=== PATIENT | male | born 1985 | race Caucasian/White ===

== ENCOUNTER 2023-11-20 17:52 | Observation (INO) | payer OTHER, SELFPAY ==
[2023-11-20 13:12] VITALS: BP 130/90
--- NOTE | 2023-11-20 14:26 | ED.GENMED ---
History of Present Illness
<Swetha Machado PA-C - Last Filed: 11/20/23 17:53>
General
Chief Complaint: Skin Problem
Source: patient
Exam Limitations: none
Time Seen by Provider: 11/20/23 14:25
Nursing documentation reviewed up to this point in time: agreed with
Travel History
Have you had any contact with someone who has COVID-19?: No
Do you have any symptoms of coronavirus? Fever > 100 degrees, chills, cough, shortness of breath, sore throat, loss of taste or smell, muscle aches, or headache?: No
History of Present Illness
History of Present Illness:
38 y/o male with a hx of substance use disorder, right ankle fracture presenting to emergency department today with acute on chronic right ankle pain. Patient states that in March, he had fallen off a roof and fractured his ankle and calcaneus,
had had surgery at [facility]. Patient states that since then, he has had persistent pain. Patient states that he has not had follow-up with his surgeon since then. His patient states that he had the stitches removed in the back of
his foot, and at that site, there has been a wound there that has been progressively been getting larger and becoming more painful. Patient states that he has had no drainage from the wound, no fevers or chills. Patient states that he cannot walk
without significant pain. Patient denies abdominal pain, nausea, vomiting.
Review of Systems
<Swetha Machado PA-C - Last Filed: 11/20/23 17:53>
Review of Systems
All Other Systems: ROS reviewed and negative except as documented in HPI and ROS
Phy Exam
<Swetha Machado PA-C - Last Filed: 11/20/23 17:53>
Physical Exam
Physical Exam:
Vitals: Patient's vital signs are stable
General: Patient stuporous. No acute distress
Skin: There is a 3 cm open chronically ulcerated wound with necrosis on posterior calcaneal surface of the right foot. There is also a small shallow red ulcer on the distal right leg. No active drainage, no bleeding
Head: Normocephalic, atraumatic
Cardiac: Regular rate and rhythm, no murmur
Peripheral vascular: 2+ dorsalis pedis pulses bilaterally, no lower extremity edema
Pulm: Normal respiratory effort
Musculoskeletal: Patient is full range of motion bilateral lower extremities. Patient is significant bony tenderness palpation of the right foot, right ankle, right calcaneus.
Neuro: CN II-XII intact. No focal neurologic deficits. Alert and oriented.
Course
<Swetha Machado PA-C - Last Filed: 11/20/23 17:53>
Orders/Labs/Results
Orders:
Orders
11/20/23 13:26
Ankle, Right 3 view CR [CR Ankle - Right Min 3 Views *] Urgent
Comment:
Reason For Exam: pain
11/20/23 15:25
CRP [C-Reactive Protein] Urgent
Complete Blood Count/With Diff Urgent
Comprehensive Metabolic Panel Urgent
Sed Rate [Erythrocyte Sed Rate] Urgent
Blood Culture Q30M
MORENA Source: Blood/Venous
Specimen Description:
11/20/23 15:43
Ibuprofen [Motrin] 600 mg PO NOW STA
11/20/23 16:17
Ibuprofen [Motrin] 400 mg .ROUTE .STK-MED ONE
11/20/23 16:57
Fentanyl, Urine Urgent
Urine Drug Abuse Screen Urgent
Date Specimen was Collected: 11/20/23
Time Specimen was Collected: 16:54
11/20/23 17:04
Admit/Transfer Patient As Directed
Co-Sign Provider:
Level of Care: Observation services
Assign to:: Telemetry
Physician / Group: Sheu
Diagnosis: Right Heel Wound; Osteomyelitis
Reason for Telemetry: Arrhythmia
Date to Stop Telemetry: 11/23/23
Time to Stop Telemetry: 11:00
Reason for Hospitalization: ID and Podiatry Consult; LE MRI
11/20/23 17:09
Code Status As Directed
Resuscitation Status: Full Code
11/20/23 17:23
Electrocardiogram (*1) Urgent
Reason for Study: QTc Monitoring
Comment: if not already done in ED
11/20/23 17:34
Add On- LAB Urgent
Comments:: urine in lab
Tests Added?: urine fentanyl
11/20/23 17:45
Blood Culture Q30M
MORENA Source: Blood/Venous
Specimen Description:
11/23/23 11:00
DC Protocol for Telemetry ONCE
Abnormal Lab Results
11/20/23 11/20/23
15:25 16:57
MPV 10.8 H fL
(7.4-10.4)
Lymphocytes % 18.7 L %
(20.5-51.1)
ESR 29 H mm/hour
(0-20)
Glucose 101 H mg/dl
(70-99)
C-Reactive Protein 47.90 H mg/L
(0.0-10.00)
Urine Fentanyl Screen Positive H
(Negative)
Urine Cocaine Screen Positive H
(Negative)
11/20/23 15:25
11/20/23 15:25
Vital Signs
Initial and Last Documented VS:
Initial Vital Signs
Temp Pulse Resp BP Pulse Ox
98.6 F 86 18 130/90 98
11/20/23 13:12 11/20/23 13:12 11/20/23 13:12 11/20/23 13:12 11/20/23 13:12
Last Documented Vital Signs
Temp Pulse Resp BP Pulse Ox
98.6 F 86 18 130/90 98
11/20/23 13:12 11/20/23 13:12 11/20/23 13:12 11/20/23 13:12 11/20/23 13:12
<Renato Claudio, DO - Last Filed: 11/20/23 15:04>
Orders/Labs/Results
Orders:
Orders
11/20/23 13:26
Ankle, Right 3 view CR [CR Ankle - Right Min 3 Views *] Urgent
Comment:
Reason For Exam: pain
11/20/23 15:25
CRP [C-Reactive Protein] Urgent
Complete Blood Count/With Diff Urgent
Comprehensive Metabolic Panel Urgent
Sed Rate [Erythrocyte Sed Rate] Urgent
Blood Culture Q30M
MORENA Source: Blood/Venous
Specimen Description:
11/20/23 15:43
Ibuprofen [Motrin] 600 mg PO NOW STA
11/20/23 16:17
Ibuprofen [Motrin] 400 mg .ROUTE .STK-MED ONE
11/20/23 16:57
Fentanyl, Urine Urgent
Urine Drug Abuse Screen Urgent
Date Specimen was Collected: 11/20/23
Time Specimen was Collected: 16:54
11/20/23 17:04
Admit/Transfer Patient As Directed
Co-Sign Provider:
Level of Care: Observation services
Assign to:: Telemetry
Physician / Group: Sheu
Diagnosis: Right Heel Wound; Osteomyelitis
Reason for Telemetry: Arrhythmia
Date to Stop Telemetry: 11/23/23
Time to Stop Telemetry: 11:00
Reason for Hospitalization: ID and Podiatry Consult; LE MRI
11/20/23 17:09
Code Status As Directed
Resuscitation Status: Full Code
11/20/23 17:23
Electrocardiogram (*1) Urgent
Reason for Study: QTc Monitoring
Comment: if not already done in ED
11/20/23 17:34
Add On- LAB Urgent
Comments:: urine in lab
Tests Added?: urine fentanyl
11/20/23 17:45
Blood Culture Q30M
MORENA Source: Blood/Venous
Specimen Description:
11/23/23 11:00
DC Protocol for Telemetry ONCE
Abnormal Lab Results
11/20/23 11/20/23
15:25 16:57
MPV 10.8 H fL
(7.4-10.4)
Lymphocytes % 18.7 L %
(20.5-51.1)
ESR 29 H mm/hour
(0-20)
Glucose 101 H mg/dl
(70-99)
C-Reactive Protein 47.90 H mg/L
(0.0-10.00)
Urine Fentanyl Screen Positive H
(Negative)
Urine Cocaine Screen Positive H
(Negative)
11/20/23 15:25
11/20/23 15:25
Vital Signs
Initial and Last Documented VS:
Initial Vital Signs
Temp Pulse Resp BP Pulse Ox
98.6 F 86 18 130/90 98
11/20/23 13:12 11/20/23 13:12 11/20/23 13:12 11/20/23 13:12 11/20/23 13:12
Last Documented Vital Signs
Temp Pulse Resp BP Pulse Ox
98.6 F 86 18 130/90 98
11/20/23 13:12 11/20/23 13:12 11/20/23 13:12 11/20/23 13:12 11/20/23 13:12
Audralt;Swetha Machado PA-C - Last Filed: 11/20/23 17:53>
MDM/Problems Addressed
Differential Diagnosis Includes:
ddx include chronic pressure ulcer, osteomyelitis, cellulitis, folliculitis
MDM/Problems Addressed:
foot pain
Chronic conditions affecting care: Other (substance use disorder)
Acute Exacerbation and/or Progression of Chronic Illness: Other (substance use disorder)
<Swetha Machado PA-C - Last Filed: 11/20/23 17:53>
*Radiology
Radiology exam reviewed: preliminary read by ED provider (no acute fracture or dislocation )
*Pulse Oximetry
Patient hypoxic: no
*Critical Care Note
Total Time (30-74mins, 75-104mins- exclusive of procedures): Not Applicable
Data Reviewed
Review of Other/Old Records Reveals: Records (no previous records in [facility] to review ) and Discharge Summary (no previous records in [facility] to review )
Source: patient and records
<Swetha Machado PA-C - Last Filed: 11/20/23 17:53>
Patient Management
Escalation/DeEscalation of care consider admission/obs:
38 y/o male with a hx of substance use disorder, right ankle fracture presenting to emergency department today with acute on chronic right ankle pain. Patient states that in March, he had fallen off a roof and fractured his ankle and calcaneus,
had had surgery at [facility]. Physical exam, patient has a ulcerated necrotic wound on his right calcaneus and significant bony tenderness to palpation. His x-ray reveals severe flattening of the posterior calcaneal cortex of the
right foot with severe subcortical sclerosis suspicious for chronic osteomyelitis. Considering this finding along with elevated ESR and CRP, we will admit patient for workup of osteomyelitis. Patient aware and in agreement with plan. Patient
accepted by hospitalist.
ED Attending Note
<Swetha Machado PA-C - Last Filed: 11/20/23 17:53>
-
Portions of this chart may have been created with voice recognition software.� Occasional wrong word or��sound alike� substitutions may have occurred due to the inherent limitations of voice recognition software.
<Renato Claudio DO - Last Filed: 11/20/23 15:04>
ED Attending Note
Patient seen and examined by attending physician: Yes
I performed the substantive portion of visit, reviewed & personally made and approve the management plan that is documented in note by myself or MEI.: Yes
ED Attending Note:
Seen with PA examined independently 38-year-old male status post fall with a calcaneal fracture treated at [facility] sutures removed he is has now subacute to chronic pain with a black eschar at the surgical site, no drainage, no appreciable
tenderness, patient appears nontoxic, x-ray noted we will await formal report
Update x-ray report noted will check CBC ESR other blood work
Discharge Plan
Departure
Patient Disposition: Admit
Date of Disposition: 11/20/23
Time of Disposition: 16:32
Presentation/result/management discussed w/ accepting MD/DO: Hospitalist
Patient with high blood pressure during this ER visit?: Yes
Condition: Fair
Discharge Problem:
Acute pain of right foot, Osteomyelitis
Prescriptions:
No Action
buprenorphine-naloxone 8-2 mg film
1 film sublingual BID
Patient Comments:
11/20/2023: last filled 10/18/23, 10 film for 5 days from [facility]
Referrals:
UNKNOWN - PT DOES,NOT KNOW [Family Provider] -
Interventions
Interventions:
*Risk Screen - Suicide Last Done: 11/20/23 13:12
*General Assessment Last Done: 11/20/23 13:12
*Neglect/Abuse Screening Last Done: 11/20/23 13:12
*ED COVID-19 Vaccine History Last Done: 11/20/23 13:12
ED-Skin Assessment Last Done: 11/20/23 15:35
Discharge Date and Time
Print Language: ESTONIAN
[2023-11-20 15:33] LABS: % Basophils 0.5 % (0-2); % Eosinophils 4.2 % (0-6); % Immature Granulocytes 0.3 % (0-0.5); % Lymphocytes 18.7 % (20.5-51.1); % Monocytes 6.6 % (1.7-9.3); % Neutrophils 69.7 % (42.2-75.2); Absolute Eosinophils 0.3 10^3/uL (0-0.7); Absolute Lymphocytes 1.2 10^3/uL (1.2-3.4); Absolute Monocytes 0.4 10^3/uL (0.1-0.6); Absolute Neutrophils 4.5 10^3/uL (1.4-6.5); Hematocrit 43.2 % (39.0-52.0); Hemoglobin 14.7 g/dL (13.0-18.0); Mean Corpuscular Hgb 27.6 pg (27.0-31.0); Mean Corpuscular Volume 81.2 fL (80.0-94.0); Mean Platelet Volume 10.8 fL (7.4-10.4); Nucleated Red Blood Cells % 0 % (-); Platelet Count 209 10^3/uL (130-400); Red Blood Cell Count 5.32 10^6/uL (4.70-6.10); Red Cell Dist. Width 13.3 % (11.5-14.5); White Blood Cell Count 6.5 10^3/uL (4.8-10.8)
[2023-11-20 15:47] LABS: ALT (SGPT) 17 U/L (0-50); AST (SGOT) 20 U/L (17-59); Albumin 4.3 g/dl (3.5-5.0); Alkaline Phosphatase 81 U/L (38-126); Blood Urea Nitrogen 10 mg/dl (9-20); Calcium 9.5 mg/dl (8.4-10.2); Carbon Dioxide 27 mmol/L (22-30); Chloride 106 mmol/L (98-107); Glucose 101 mg/dl (70-99); Potassium 4.4 mmol/L (3.5-5.1); Sodium 139 mmol/L (135-145); Total Bilirubin 0.6 mg/dl (0.2-1.3); Total Protein 7.4 g/dl (6.3-8.2); eGFR > 60.00
[2023-11-20 15:48] LABS: Erythrocyte Sed Rate 29 mm/hour (0-20)
[2023-11-20] MEDS: MOTRIN 600 MG PO (16:37)
--- NOTE | 2023-11-20 17:26 | HPS.HSE ---
Addendum entered and electronically signed by Mitra Hyman MD 11/20/23 18:25:
I saw and examined the patient.
The ROAD BUILDER or PA's note was reviewed and I agree with the note.
Comment:
38M hx Cocaine Abuse Right Calcaneal fracture wound infection poor historian (story noted to change between interviewers). Patient consistently reports last surgical intervention Mar 2024 [facility], original injury incurred following fall in
2022, p/w acute on chronic right heel pain. VSS afebrile. Labs relatively unremarkable no Leukocytosis mild elevation CRP ESR. UDS positive for Fentanyl and Cocaine. Patient endorses daily smoking and cocaine use via nasal airway but denies other
illicit drug use. XR of foot concerning for possible osteomyelitis wound infection.
Physical Exam
General: No pallor, cyanosis, or jaundice.
HEENT: Throat clear. Pinpoint pupils, injected conjunctiva b/l Normocephalic atraumatic
NECK: Supple. No JVD Carotid Bruits
RESPIRATORY: Lungs clear to auscultation. No crackles wheezes stridor
CVS: S1, S2 normal. RRR. No murmur, rub or gallop.
ABDOMEN: Soft, non-tender. No distension. BS+/normal.
EXTREMITIES: No peripheral cyanosis or edema. Right foot wound heel tenderness granulation tissue present
ELECTRONIC GAMING DEVICE SUPERVISOR: Lethargic but arousable oriented x3
#Right Foot Wnd heel Osteomyelitis
Wound Care
Podiatry Infectious disease Eval
MRI
blood cultures
monitor off abx for now, empiric abx if patient develops fever significant signs systemic infection
pain control Tylenol Ibuprofen
gi ppx protonix
Original Note:
Family Physician
-
Family Physician: NOT KNOW UNKNOWN - PT DOES
Chief Complaint
-
Right heel wound
History of Present Illness
Patient is a 38 y/o male with a PMH of substance abuse who presents with c/o a necrotic wound on his right heel. He states that he jumped off a 3-story building in January 2023 and broke his back, pelvis, and both ankles. He had 2 surgeries for his
right calcaneal fracture in the past year but was unable to receive hardware to fix the fracture due to preexisting infection. His second surgery in March included drain placement. He received all care from [facility] and his last appointment
was several months ago. He states that the wound has been necrotic for months. Denies fever, sweats or chills. Patient is a poor historian, frequently changing responses to questions.
Medical History
Past Medical History
Past Medical History: Reports Other
Additional Past Medical History:
Substance Use Disorder
Past Surgical History: Reports Other
Additional Past Surgical History:
Right heel surgery
Social History
Tobacco: Smoker (1.5 ppd)
Alcohol: None
Drug: Cocaine (Previous)
Living: With Family (Cousin)
Family History
Family History: Not pertinent
Allergies / Home Medications
Allergies reflects when Allergies were last updated in [facility].
Home Medications with original date entered in [facility]
Allergy/Medication List:
Allergies
Allergy/AdvReac Type Severity Reaction Status Date / Time
Penicillins Allergy Unknown Verified 11/20/23 13:13
Home Medications
buprenorphine 8 mg-naloxone 2 mg sublingual film 1 film sublingual BID 11/20/23 -Last Filled in early October 2023
Review of Systems
-
A 12 point ROS was completed and negative except as noted: Yes
Constitutional: Denies Fever or Chills
Respiratory: Denies Cough or Trouble Breathing
Cardiac: Denies Chest Pain or Palpitations
Physical Exam
Vital Signs
Vital Signs
Temp Pulse Resp BP Pulse Ox
98.6 F 86 18 130/90 98
11/20/23 13:12 11/20/23 13:12 11/20/23 13:12 11/20/23 13:12 11/20/23 13:12
Physical Exam
General: Comfortable and Conversant
HEENT: NormoCephalic, Atraumatic and Other (Sclera injected )
Respiratory: Clear and Non Labored Respirations
Cardiac: S1/S2 and Regular Rhythm
GI: Soft and Non Tender
Rectal: Deferred by Provider
Musculoskeletal: No Clubbing, No Cyanosis and No Edema
Skin: Warm, Dry and Other (Right Wound appears dark brown without significant purulent drainage)
Neuro: Awake, Alert, Oriented and Nonfocal/grossly intact
Psych: Calm
Laboratory Results
-
11/20/23 15:25
11/20/23 15:25
Laboratory Results
Total Bilirubin 0.6 mg/dl (0.2-1.3) 11/20/23 15:25
AST 20 U/L (17-59) 11/20/23 15:25
ALT 17 U/L (0-50) 11/20/23 15:25
Alkaline Phosphatase 81 U/L (38-126) 11/20/23 15:25
Data Reviewed
-
Diagnostic Radiology: Report Reviewed by me
Lab Data: Labs Reviewed by me
Impression/Plan
-
Right Heel Wound
-X-Ray raises concern for underlying osteomyelitis
-Consult Podiatry and Infectious Disease
-Hold on antibiotics given lack of systemic symptoms
-Check MRI
Substance Use Disorder
-Patient admits to prior cocaine use
-Per PDMP he previously was filling buprenorphine
-Check urine drug screen
-Start Opioid Withdrawal Protocol
Tobacco Use Disorder
-Encourage smoking cessation
-Reviewed with patient importance of smoking cessation to aide in wound healing
DVT proph: Lovenox
Code Status: Full Code
[2023-11-20 17:27] LABS: Amphetamines Negative (Negative); Barbiturates Negative (Negative); Benzodiazepines Negative (Negative); Buprenorphine Negative (Negative); Cocaine Positive (Negative)
[2023-11-20 17:28] LABS: Marijuana Negative (Negative); Methadone Negative (Negative); Methamphetamines Negative (Negative); Opiates Negative (Negative); Phencyclidine Negative (Negative); Tricyclic Antidepressants Negative (Negative)
[2023-11-20 17:43] LABS: Fentanyl, Urine Positive (Negative)
[2023-11-20 18:11] VITALS: BP 137/88
--- NOTE | 2023-11-20 18:14 | W.PN.UPDATE ---
Update Note
Progress Note Update
billing purposes
--- NOTE | 2023-11-20 18:45 | PTCARENOTE ---
/- Patient transferred and oriented to Unit without issue. Patient is AAOX3, calm, flushed with mild chills observed, but HR=85; Sinus Rhythm on Telemetry #25; Skin CDI except R-heal wound. Wound is CDI with fresh dressing. Not undressing it
at this time. Bed Alarm intact. Patient requests meal but denies any pain or other needs at this time.
[2023-11-20 18:50] VITALS: BP 139/78; BMI 31.2
[2023-11-20 23:17] VITALS: BP 119/81
[2023-11-21 03:41] VITALS: BP 136/84
[2023-11-21 06:49] LABS: Hematocrit 44.5 % (39.0-52.0); Mean Corp Hgb Conc. 33.7 g/dL (33.0-37.0); Mean Corpuscular Hgb 27.2 pg (27.0-31.0); Mean Corpuscular Volume 80.6 fL (80.0-94.0); Mean Platelet Volume 10.5 fL (7.4-10.4); Platelet Count 210 10^3/uL (130-400); Red Blood Cell Count 5.52 10^6/uL (4.70-6.10); Red Cell Dist. Width 13.4 % (11.5-14.5); White Blood Cell Count 7.2 10^3/uL (4.8-10.8)
[2023-11-21 07:00] VITALS: BP 150/95
[2023-11-21 07:11] LABS: ALT (SGPT) 15 U/L (0-50); AST (SGOT) 16 U/L (17-59); Albumin 4.1 g/dl (3.5-5.0); Alkaline Phosphatase 79 U/L (38-126); Blood Urea Nitrogen 11 mg/dl (9-20); Calcium 9.8 mg/dl (8.4-10.2); Carbon Dioxide 28 mmol/L (22-30); Chloride 106 mmol/L (98-107); Direct Bilirubin 0.4 mg/dl (0.0-0.4); Estimated Creatinine Clearance > 125 ml/min; Glucose 95 mg/dl (70-99); Potassium 4.3 mmol/L (3.5-5.1); Sodium 142 mmol/L (135-145); Total Bilirubin 0.9 mg/dl (0.2-1.3); Total Protein 7.2 g/dl (6.3-8.2); eGFR > 60.00
[2023-11-21] MEDS: PROTONIX 40 MG PO (07:11)
[2023-11-21] MEDS: TORADOL 15 MG IV (07:12)
--- NOTE | 2023-11-21 08:23 | CON.MD ---
Consultation - Medical
-
Podiatry consulted for right heel wound/history of osteomyelitis
Mr. Ya is 38M who presented to the ED for increasing redness to the right heel. He relates a history of a right Calcaneal fracture that occurred summer after falling from a height and fracturing back, pelvis, heel and ankles. At the
time he was treated at [facility]. At the time he was scheduled for ORIF of the heel, but infection was found at the time so hardware was never placed. He states that he returned to the OR for washout/drain and he was subsequently
treated with 6 weeks of IV antibiotics. VSS afebrile. Labs relatively unremarkable no Leukocytosis mild elevation CRP ESR. UDS positive for Fentanyl and Cocaine. Patient endorses daily smoking and cocaine use via nasal airway but denies other
illicit drug use. XR of foot concerning for possible osteomyelitis wound infection. Denies pain currently.
Past Medical History
Past Medical History: Reports Other
Additional Past Medical History:
Substance Use Disorder
Past Surgical History: Reports Other
Additional Past Surgical History:
Right heel surgery
Social History
Tobacco: Smoker (1.5 ppd)
Alcohol: None
Drug: Cocaine (Previous)
Living: With Family (Cousin)
Family History
Family History: Not pertinent
Physical Exam
Right heel with a deformed calcaneal bone, prominent bone superiorly and flat depressed bone directly posterior, there is hard yellow brown hyperkeratosis present. No erythema, no active drainage. No areas of probing and no bone exposed. On the
anterior ankle is an unrelated superficial fibrogranular wound that he states it from scratching. serous drainage only, no erythema.
Allergy
Penicillin
Home Medications
buprenorphine 8 mg-naloxone 2 mg sublingual film 1 film sublingual BID 11/20/23 -Last Filled in early October 2023
Vital Signs
Temp Pulse Resp BP Pulse Ox
98.6 F 86 18 130/90 98
11/20/23 13:12 11/20/23 13:12 11/20/23 13:12 11/20/23 13:12 11/20/23 13:12
Assessment:
Right heel hyperkeratosis
Right heel chronic osteomyelitis
History of right calcaneal fracture/malunion
Plan:
X-rays are reviewed and discussed
MRI pending
Blood cultures pending
Plan to debride hyperkeratosis at bedside once I obtain a 15 blade to rule out sinus tract or underlying wound
ID consult
monitor off abx for now, empiric abx if patient develops fever significant signs systemic infection
pain control Tylenol Ibuprofen
Bordered foam applied to anterior ankle wound and to heel
[2023-11-21 11:00] VITALS: BP 153/72
--- NOTE | 2023-11-21 11:12 | PTCARENOTE ---
Addendum entered by Lidia Ferguson RN 11/21/23 11:58:
11/20- Patient is AAOX3, still agitated but significantly less so than earlier. Pre-Suboxone Administration COWS score=12; Post-Suboxone Administration COWS score=4. Still facial flushing but less than earlier; Restless but not agitated at this
time.
Original Note:
11/20- Patient is increasingly agitated, stating he wants to go home Now. He states, 'I am about to fucking spaz out.' AAOX3 but nonredirectable, scattered, agitated, pulling off telemetry; Face is flushed; piloerected skin. COWS current score is
12. Attempted calming, therapeutic conversation, but patient is still agitated. Notified Physician.
[2023-11-21] MEDS: SUBUTEX 4 MG SL (11:21)
--- NOTE | 2023-11-21 12:00 | PTCARENOTE ---
11/20- Patient is calmer but still contemplating leaving AMA. He took Telemetry off and refuses to put it back on despite education as to the purpose of Telemetry. He verbalizes understanding but still refuses. Notified Physician. Telemetry
remaining off at this time.
[2023-11-21 13:13] VITALS: BP 131/79; PULSE 98; O2SAT 95
[2023-11-21 13:16] VITALS: BP 131/79; PULSE 103; O2SAT 94
--- NOTE | 2023-11-21 14:44 | W.PN.UPDATE ---
Update Note
Progress Note Update
Patient left Against Medical Advice
AOx3 at capacity, able to verbalize the risks of his decision (including but not limited to worsening infection, potential loss of limb, and even possibility ), at capacity to make his own medical decision.
Nurse and Hospitalist Discussed risks as above with patient. Patient nonetheless requested to be allowed to leave. Patient's wishes to sign out AMA were respected.
--- NOTE | 2023-11-21 15:17 | CM ---
CM reviewed chart, patient left AMA, obs letter not given.
Plan; patient left AMA.
--- NOTE | 2023-11-21 16:45 | W.DCSUMMARY ---
Discharge Summary
Discharge Data
Date of Admission: 11/20/23
Date of Discharge: 11/21/23
-
Pending Results: Yes
Additional Pending Results:
blood culture results
Hospital Course
38M hx Cocaine Abuse Right Calcaneal fracture wound infection poor historian (story noted to change between interviewers). Patient consistently reports last surgical intervention Mar 2024 [facility], original injury incurred following fall in
2022, p/w acute on chronic right heel pain. VSS afebrile. Labs relatively unremarkable no Leukocytosis mild elevation CRP ESR. UDS positive for Fentanyl and Cocaine. Patient endorses daily smoking and cocaine use via nasal airway but denies other
illicit drug use. XR of foot concerning for possible osteomyelitis wound infection. Admitted for further evaluation/treatment, patient ultimately left AMA the very next day before MRI could be obtain or bedside debridement could be performed as
per podiatry evaluation/recommendation.
Discharge Plan
-
Patient Disposition: Against Medical Advice
Condition: Fair
Prescriptions:
No Action
buprenorphine-naloxone 8-2 mg film
1 film sublingual BID
Patient Comments:
11/20/2023: last filled 10/18/23, 10 film for 5 days from [facility]
Discharge Date and Time
Discharge Date/Time: 11/21/23 14:46
Print Language: [id number]
== END 2023-11-21 14:46 | disposition left against medical advice (07) ==
LOC: 4 WEST ACU 17:52
PROVIDERS: Physician Assistant; Physician Assistant Medical; ADMITTING PHYSICIAN Internal Medicine; CONSULT PHYSICIAN Podiatrist; EMERGENCY PHYSICIAN Emergency Medicine
DX: M25.571 Pain in right ankle and joints of right foot (principal); I96 Gangrene, not elsewhere classified; L97.318 Non-pressure chronic ulcer of right ankle with other specified severity; G89.29 Other chronic pain; F14.10 Cocaine abuse, uncomplicated; F11.10 Opioid abuse, uncomplicated; F17.210 Nicotine dependence, cigarettes, uncomplicated; S92.001A Unspecified fracture of right calcaneus, initial encounter for closed fracture; X58.XXXA Exposure to other specified factors, initial encounter; Y93.33 Activity, BASE jumping; Y92.89 Other specified places as the place of occurrence of the external cause; M79.89 Other specified soft tissue disorders; R60.9 Edema, unspecified; Z88.0 Allergy status to penicillin; Z87.828 Personal history of other (healed) physical injury and trauma
CPT/HCPCS: 73610; 80053; 80306; 80307; 82248; 85025; 85027; 85652; 86140; 87040; 87070; 93005; 97162; 97166; 99284; 99406; G0378